=== PATIENT | female | born 1985 | race Caucasian/White ===

== ENCOUNTER → 2019-03-20 | Outpatient (CLI) | payer OTHER, BC ==
[~2019-03-20] MED LIST: AMOX500 PO; DIPATR PO; HYDACE5 PO; IBUP800 PO; OXYACE5T PO; PROM25 PO; RXOXYACE PO; Verotin-Gr Cap1 EACH PO
[2019-03-22 05:09] LABS: HIV SCREEN 4TH GENERATION WRFX Non Reactive (Non Reactive)
== END | disposition home or self-care (01) ==
LOC: LAB EV 15:11 → LAB SHORT 15:11
PROVIDERS: Physician Assistant Medical
DX: Z20.9 Contact with and (suspected) exposure to unspecified communicable disease (principal)
CPT/HCPCS: 86803; 87389

== ENCOUNTER → 2019-05-09 | Outpatient (CLI) | payer OTHER, BC ==
[2019-05-10 05:09] LABS: HIV SCREEN 4TH GENERATION WRFX Non Reactive (Non Reactive)
== END | disposition home or self-care (01) ==
LOC: LAB EV 10:33 → LAB SHORT 10:33
PROVIDERS: Family Medicine
DX: Z20.9 Contact with and (suspected) exposure to unspecified communicable disease (principal)
CPT/HCPCS: 87389

== ENCOUNTER → 2019-08-09 | Outpatient (CLI) | payer OTHER, BC ==
[2019-08-10 04:07] LABS: HCV ANTIBODY 0.1 (0.0-0.9)
[2019-08-10 05:08] LABS: HIV SCREEN 4TH GENERATION WRFX Non Reactive (Non Reactive)
== END | disposition home or self-care (01) ==
LOC: LAB EV 10:29 → LAB SHORT 10:29
PROVIDERS: Family Medicine
DX: Z20.9 Contact with and (suspected) exposure to unspecified communicable disease (principal)
CPT/HCPCS: 84460; 86317; 86803; 87389

== ENCOUNTER 2020-01-07 10:16 | Day surgery (SDC) | payer BC, SELFPAY ==
[~2020-01-07] VITALS: Ht 160 cm; Wt 54.5 kg
[2020-01-07] MEDS ORDERED: [UNRECOGNIZED DRUG - OTHER] (11:04)
== END 2020-01-07 12:01 | disposition home or self-care (01) ==
LOC: ORSCSDS 10:16
PROVIDERS: Internal Medicine Gastroenterology
PROC: 06LY4CC Occlusion of Hemorrhoidal Plexus with Extraluminal Device, Percutaneous Endoscopic Approach (ICD-10-PCS; principal; 2020-01-07 11:30)
DX: K62.5 Hemorrhage of anus and rectum (principal); K59.00 Constipation, unspecified; K64.8 Other hemorrhoids; Z79.899 Other long term (current) drug therapy
CPT/HCPCS: J2704; J7120

== ENCOUNTER 2023-03-24 20:16 | Emergency (ER) | payer OTHER ==
[~2023-03-24] VITALS: Ht 160 cm; Wt 69.4 kg
[~2023-03-24 20:16] MED LIST changes: +[UNRECOGNIZED DRUG - OTHER]
[2023-03-24 20:22] VITALS: BP 113/73
== END 2023-03-24 22:54 | disposition home or self-care (01) ==
LOC: ER 20:16
DX: N99.89 Other postprocedural complications and disorders of genitourinary system (principal); R33.8 Other retention of urine; Y83.8 Other surgical procedures as the cause of abnormal reaction of the patient, or of later complication, without mention of misadventure at the time of the procedure; Z79.899 Other long term (current) drug therapy
CPT/HCPCS: 51701; 51798; 99283-25; A9270

== ENCOUNTER 2023-03-31 11:24 | Emergency (ER) | payer OTHER ==
[~2023-03-31] VITALS: Ht 160 cm; Wt 70.3 kg
[2023-03-31 11:47] VITALS: BP 136/91
== END 2023-03-31 14:24 | disposition home or self-care (01) ==
LOC: ER 11:24
DX: K59.00 Constipation, unspecified (principal); Z98.890 Other specified postprocedural states; Z79.899 Other long term (current) drug therapy
CPT/HCPCS: 74018; 99283-25; A9270